=== PATIENT | female | born 1950 ===

== ENCOUNTER 2020-07-22 20:33 | Inpatient (IN) | payer OTHER, SELFPAY ==
--- NOTE | 2020-07-22 20:47 | PC.NURSE ---
Per pt's daughter Court Victor phone number [phone], pt was sent to the ED by Dr. Joaquin (radiologist) to be admitted for L5 fx. Dtr reports pt is to be admitted for procedure tomorrow.
--- NOTE | 2020-07-22 21:15 | ED.GENADULT ---
HPI - General Adult General Chief complaint: Back Pain/Injury Stated complaint: BACK PAIN Time Seen by Provider: 07/22/20 21:06 History of Present Illness HPI narrative: History of endometrial cancer. Patient has been having back pain since April. Has been having some incontinence issues since then. Also has numbness to the left leg. Patient had CT scan of the spine done yesterday. It showed a compression fracture. She was told to come into the emergency department for getting cement place tomorrow while in the hospital. no fever no chills no new weakness. No new incontinence. No coughing congestion upper respiratory symptoms. Pain is Sharp and radiates to bilateral lower extremity.. Onset (ago): month(s) Location: back Radiation: back and extremity ( Bilateral lower extremity) Related Data Allergies Allergy/AdvReac Type Severity Reaction Status Date / Time No Known Allergies Allergy Unverified 07/08/20 19:36 [No Known Allergies*] Review of Systems Review of Systems: Yes all other systems are reviewed and are negative Eyes: Eyes: Reports as per HPI ENT: Reports system reviewed and no additional complaints, except as documented Cardiovascular: Cardiovascular: Reports as per HPI and Reports no additional cardiovascular complaints Respiratory: Respiratory: Reports as per HPI and Reports no additional respiratory complaints Gastrointestinal: Gastrointestinal: Reports as per HPI and Reports no additional gastrointestinal complaints Genitourinary: Genitourinary: Reports no additional female genitourinary complaints Musculoskeletal: Musculoskeletal: Reports no additional musculoskeletal complaints Integumentary/Breasts: Skin/Breast: Reports system reviewed and no additional complaints, except as docu Neurologic: Reports system reviewed and no additional complaints, except as documented Endocrine: Endocrine: Reports no additional endocrine complaints Hematologic/Lymphatic: Hematologic/Lymphatic: Reports no additional hematologic/lymphatic complaints Allergic/Immunologic: Allergic/Immunologic: Reports no additional allergic/immunologic complaints [facility] Past Medical History Medical History Diabetes 1.5, managed as type 2 Endometrial cancer Hypothyroid Osteoporosis Social History Social History Alcohol intake: never Smoking Status: Never smoker Use of substances other than those prescribed or required for medical reasons: No Advance Directives: No Advance Directives Information Provided: No Physical Exam Vital Signs and I&O and Narrative: Vital Signs and I&O: Vital Signs Temp 98.1 F 10/01/20 21:36 Pulse 84 07/22/20 22:13 Resp 18 07/22/20 22:13 BP 156/84 H 07/22/20 22:13 Pulse Ox 96 07/22/20 22:13 Intake & Output 07/22/20 07/22/20 07/23/20 06:59 18:59 06:59 Weight 64.864 kg Body Mass Index 25.3 Const: General: cooperative Orientation/consciousness: oriented to person, oriented to place and oriented to time HENMT: Head: Yes normal to inspection Face and sinus: Yes normal facial exam Teeth and gingiva: dentition normal Throat: Yes posterior oropharynx normal Eyes: General: appearance normal, both eyes and all related structures Neck: Other: no JVD no posterior C-spine tenderness Neck: Yes normal visual inspection Chest: Chest palpation & inspection: normal inspection of the chest Resp: Effort & Inspection: normal respiratory effort Auscultation: clear to auscultation bilaterally Cardio: Jugular venous distension: no JVD Rate: regular rate Rhythm: regular rhythm GI: Inspection: Yes normal to inspection Palpation (GI): Soft to palpation, nontender, no guarding and not rigid Auscultation: normal bowel sounds : General: Yes no CVA tenderness Back/Spine/Pelvis: Other: sensation in bilateral lower extremity intact. Patient has weakness on movement of the left leg. There is diminished reflexes at patella on the left. Back: no CVA tenderness Thoracic/Lumbar Spine: thoracic and lumbar spine normal to inspection and No straight leg raise positive Skin: General skin exam: no rashes or lesions noted Neuro: General: oriented to person, oriented to place and oriented to time Extrem: General: Yes normal to inspection Psych: Appearance: grossly normal Medical Decision Making MDM Narrative Medical decision making narrative: Patient had no new bowel urinary incontinence. No focal weakness. Has compression fracture to her L4 area. Patient was told by Interventional Radiology to come in for admission pain control. Was to get kyphoplasty done tomorrow. Patient's case discussed with hospitalist service for pain control. Currently in stable condition. Awaiting admission. Patient had CT of the abdomen pelvis done yesterday. There is no evidence of abdominal aortic aneurysm. There is no abscess is no perforation. Lab Data Result diagrams: 07/22/20 21:51 07/22/20 21:51 Labs: Lab Results 07/22/20 07/22/20 07/22/20 Range/Units 21:51 21:51 21:51 WBC 4.9 (4.8-10.8) X10*3/uL RBC 3.69 L (4.20-5.50) X10*6/uL Hgb 10.3 L (12.0-16.0) g/dl Hct 31.3 L (37-47) % MCV 84.8 (80-98) fL MCH 27.9 (27.0-33.0) pg MCHC 32.9 (31.0-35.0) g/dl RDW 14.6 (11.0-16.0) % Plt Count 249 (160-400) X10*3/uL MPV 9.4 (9.4-12.3) fL Immature Gran % (Auto) 0.4 (0.0-0.4) % Neut % (Auto) 62.3 (45-73) % Lymph % (Auto) 23.5 (20-40) % [place] % (Auto) 7.7 (2-11) % Eos % (Auto) 5.3 H (0-4) % Baso % (Auto) 0.8 (0-2) % Neut # (Auto) 3.1 (2.0-8.3) X10*3/uL Lymph # (Auto) 1.2 (1.2-4.9) X10*3/uL [place] # (Auto) 0.4 (0.1-1.2) X10*3/uL Eos # (Auto) 0.3 (0.0-0.4) X10*3/uL Baso # (Auto) 0.0 (0.0-0.2) X10*3/uL Abs Immat Gran (auto) 0.02 (0.00-0.03) X10*3/uL Absolute Nucleated RBC 0.000 (0.0-0.012) X10*3/uL Nucleated RBC % (auto) 0.0 (0.0-0.2) /100WBC PT 12.7 (10.8-13.0) SEC INR 1.1 (0.9-1.1) Sodium 135 (135-145) mmol/L Potassium 4.1 (3.3-5.1) mmol/l Chloride 100 (96-108) mmol/L Carbon Dioxide 26 (22-29) mmol/L Anion Gap 13 (12-20) BUN 14 (9-16) mg/dL Creatinine 0.94 (0.5-1.4) mg/dL Estim Creat Clear Calc 52.5 Estimated GFR 59 Random Glucose 83 (60-115) mg/dL Calcium 8.8 (8.4-10.2) mg/dL Blood Type Antibody Screen 07/22/20 Range/Units 21:51 WBC (4.8-10.8) X10*3/uL RBC (4.20-5.50) X10*6/uL Hgb (12.0-16.0) g/dl Hct (37-47) % MCV (80-98) fL MCH (27.0-33.0) pg MCHC (31.0-35.0) g/dl RDW (11.0-16.0) % Plt Count (160-400) X10*3/uL MPV (9.4-12.3) fL Immature Gran % (Auto) (0.0-0.4) % Neut % (Auto) (45-73) % Lymph % (Auto) (20-40) % [place] % (Auto) (2-11) % Eos % (Auto) (0-4) % Baso % (Auto) (0-2) % Neut # (Auto) (2.0-8.3) X10*3/uL Lymph # (Auto) (1.2-4.9) X10*3/uL [place] # (Auto) (0.1-1.2) X10*3/uL Eos # (Auto) (0.0-0.4) X10*3/uL Baso # (Auto) (0.0-0.2) X10*3/uL Abs Immat Gran (auto) (0.00-0.03) X10*3/uL Absolute Nucleated RBC (0.0-0.012) X10*3/uL Nucleated RBC % (auto) (0.0-0.2) /100WBC PT (10.8-13.0) SEC INR (0.9-1.1) Sodium (135-145) mmol/L Potassium (3.3-5.1) mmol/l Chloride (96-108) mmol/L Carbon Dioxide (22-29) mmol/L Anion Gap (12-20) BUN (9-16) mg/dL Creatinine (0.5-1.4) mg/dL Estim Creat Clear Calc Estimated GFR Random Glucose (60-115) mg/dL Calcium (8.4-10.2) mg/dL Blood Type O Positive Antibody Screen NEGATIVE Discharge Plan Discharge Patient Disposition: Admitted As Inpatient
[2020-07-22 21:36] VITALS: BP 159/85; PULSE 86; RESP 16; TEMP 36.7; O2SAT 97; BMI 25.3
[2020-07-22 22:00] LABS: MANUAL DIFF FLAG NO
[2020-07-22 22:03] LABS: Basophils Percent Auto 0.8 % (0-2); Eosinophils Absolute Auto 0.3 X10*3/uL (0.0-0.4); Eosinophils Percent Auto 5.3 % (0-4); Hematocrit 31.3 % (37-47); Hemoglobin 10.3 g/dl (12.0-16.0); Imm Gran Abs Auto 0.02 X10*3/uL (0.00-0.03); Imm Gran Pct Auto 0.4 % (0.0-0.4); Lymphocytes Absolute Auto 1.2 X10*3/uL (1.2-4.9); Lymphocytes Percent Auto 23.5 % (20-40); Mean Corpuscular HGB Conc 32.9 g/dl (31.0-35.0); Mean Corpuscular Hemoglobin 27.9 pg (27.0-33.0); Mean Corpuscular Volume 84.8 fL (80-98); Mean Platelet Volume 9.4 fL (9.4-12.3); Monocytes Absolute Auto 0.4 X10*3/uL (0.1-1.2); Monocytes Percent Auto 7.7 % (2-11); Neutrophils Absolute Auto 3.1 X10*3/uL (2.0-8.3); Neutrophils Percent Auto 62.3 % (45-73); Platelet Count 249 X10*3/uL (160-400); Red Blood Count 3.69 X10*6/uL (4.20-5.50); Red Cell Distribution Width 14.6 % (11.0-16.0); White Blood Count 4.9 X10*3/uL (4.8-10.8)
[2020-07-22] MEDS: HYDROmorphone HCl 0.5 MG/0.5 ML SYRINGE IVPUSH (22:05)
[2020-07-22 22:10] LABS: INTERNATIONAL NORM RATIO 1.1 (0.9-1.1); Prothrombin Time 12.7 SEC (10.8-13.0)
[2020-07-22 22:13] VITALS: BP 156/84; PULSE 84; RESP 18; O2SAT 96
[2020-07-22 22:22] LABS: Anion Gap 13 (12-20); Blood Urea Nitrogen 14 mg/dL (9-16); Calcium 8.8 mg/dL (8.4-10.2); Carbon Dioxide 26 mmol/L (22-29); Chloride 100 mmol/L (96-108); Creatinine Clr Calc Pharmacy 52.5; Estimated Glomerular Filt Rate 59; Glucose Random 83 mg/dL (60-115); Potassium 4.1 mmol/l (3.3-5.1); Sodium 135 mmol/L (135-145)
--- NOTE | 2020-07-22 22:28 | P.HPIM_ITS ---
History of Present Illness Date of Service: 07/22/20 Chief Complaint: kyphoplasty this is a pleasant 69-year-old female with past medical history of uterine cancer status post hysterectomy and radiation therapy, diabetes, Lyme disease, who presents to the hospital after getting a call from her interventional rad iologist stating that she needs to be admitted for kyphoplasty in the morning. Patient reports that she suffers from compression fracture that occurred sometime in April but has worsened now. She underwent a CT scan of her back today and was called by her doctor shortly after an asked to come into the hospital for the procedure tomorrow. Patient has had numbness, tingling, and weakness of lower extremities bilaterally since April, she also developed urinary retention due to the complication from her fracture. She currently has no chest pain, no shortness of breath, no abdominal pain, no urinary symptoms. No lower extremity edema. On arrival to the ED hemodynamically stable with no significant abnormal vitals. Labs significant for hemoglobin of 10.3 which is lower than her hemoglobin in April of this year which was 12.1, otherwise unremarkable patient will be admitted for further management. Past medical hi\story: Diabetes, Lyme disease, endometrial cancer status post hysterectomy and radiation therapy not on chemotherapy, surgical history: hysterectomy, tonsillectomy, parathyroidectomy Family history: Diabetes social history: Comes from home, ambulates with a cane, denies tobacco alcohol or illicit drugs Review of Systems Review of Systems: Yes all other systems are reviewed and are negative Neurologic: Reports system reviewed and no additional complaints, except as documented [facility] Medical History Diabetes 1.5, managed as type 2 Endometrial cancer Hypothyroid Osteoporosis Social History Household Members: Other Household Members Other:: ex Housing: House Alcohol intake: never Smoking Status: Never smoker Use of substances other than those prescribed or required for medical reasons: No Have you been hit, kicked, punched, or otherwise hurt by someone within the past year? If so, by whom?: No Do you feel safe in your current relationship?: No Current Relationship Is there a partner from a previous relationship who is making you feel unsafe now?: No Are you made to feel afraid or neglected: No Advance Directives: No Advance Directives Information Provided: No Do you have thoughts of harming others: None Recently lost weight without trying: Yes Meds Allergies Allergy/AdvReac Type Severity Reaction Status Date / Time No Known Allergies Allergy Unverified 07/08/20 19:36 [No Known Allergies*] Home Medications Medication Instructions Recorded Confirmed Type calcium carbonate-vitamin D3 1 tab PO BID 07/23/20 07/23/20 History [Oyster [place] Calcium-Vit D3] cholecalciferol (vitamin D3) 1 cap PO DAILY 07/23/20 07/23/20 History gabapentin 1 cap PO TID 07/23/20 07/23/20 History levothyroxine 1 tab PO DAILY 07/23/20 07/23/20 History metformin 2 tab PO DAILY 07/23/20 07/23/20 History oxycodone 1 - 2 tab PO Q4H PRN 07/23/20 07/23/20 History tamsulosin 2 cap PO BEDTIME 07/23/20 07/23/20 History Physical Exam Vital Signs and Narrative: Vital Signs: Last Vital Signs Temp 98.1 F 07/22/20 21:36 Pulse 84 07/22/20 22:13 Resp 18 07/22/20 22:13 BP 156/84 H 07/22/20 22:13 Pulse Ox 96 07/22/20 22:13 Body Mass Index 25.3 Const: General: cooperative and no acute distress Orientation/consciousness: patient oriented x3 Eyes: General: appearance normal, both eyes and all related structures Pupils: Equal, round and reactive pupils present Resp: Effort & Inspection: normal respiratory effort Auscultation: clear to auscultation bilaterally Cardio: Rate: regular rate Rhythm: regular rhythm GI: Inspection: Yes normal to inspection Palpation (GI): Soft to palpation Auscultation: normal bowel sounds Skin: General skin exam: no rashes or lesions noted Neuro: General: patient oriented x3 Cranial nerves: Yes Equal, round and reactive pupils present Cognition (Neuro): normal cognition Motor exam (neuro): 5/5 motor strength present throughout Extrem: General: Yes normal to inspection and Yes no pedal edema Results Labs Labs: Laboratory Tests 07/22/20 07/22/20 07/22/20 21:51 21:51 21:51 WBC 4.9 RBC 3.69 L Hgb 10.3 L Hct 31.3 L MCV 84.8 MCH 27.9 MCHC 32.9 RDW 14.6 Plt Count 249 MPV 9.4 Immature Gran % (Auto) 0.4 Neut % (Auto) 62.3 Lymph % (Auto) 23.5 [place] % (Auto) 7.7 Eos % (Auto) 5.3 H Baso % (Auto) 0.8 Neut # (Auto) 3.1 Lymph # (Auto) 1.2 [place] # (Auto) 0.4 Eos # (Auto) 0.3 Baso # (Auto) 0.0 Abs Immat Gran (auto) 0.02 Absolute Nucleated RBC 0.000 Nucleated RBC % (auto) 0.0 PT 12.7 INR 1.1 Sodium 135 Potassium 4.1 Chloride 100 Carbon Dioxide 26 Anion Gap 13 BUN 14 Creatinine 0.94 Estim Creat Clear Calc 52.5 Estimated GFR 59 Random Glucose [address] scan - abdomen: Radiologist's impression: CT of the abdomen and pelvis done on 07/21/2022 any shows multiple nodules in the lungs, abnormal soft tissue in the retroperitoneum of the lower abdomen suggestive of lymphadenopathy metastatic disease. Marked bladder wall thickening and wall thickening of the sigmoid colon and rectum questionable for post radiation change. Severe L4 vertebral body compression fracture that appears to have increased from MRI in May 2020. With retropulsion of bone into the spinal canal. Assessment and Plan (1) Compression fracture: Status: Acute - unclear why patient had compression fracture she does have history of osteoporosis as well as endometrial cancer but reports no bone metastasis as of right now. Underwent CT scan on outpatient basis on the of this month which showed worsening of her compression fracture at the L4 level and therefore was called by her specialist to come into the hospital for cement infusion in a.m. (2) Endometrial cancer: Status: Acute status pot hysterectomy appears to have metastasis this is at this point per CT done on 07/21 will need follow-up with her medical claims representative oncologist as outpatient (3) Osteoporosis: Status: Acute continue calcium/vitamin-D, continue cholecalciferol (4) Hypothyroid: Status: Acute continue levothyroxine (5) Diabetes 1.5, managed as type 2: Status: Acute stop metformin start low-dose sliding scale insulin diabetic diet
--- NOTE | 2020-07-22 22:32 | PC.NURSE ---
PT SENT HERE BY MD CASTELLANO AFTER MRI REVEALED WORSENED L5 COMPRESSION FX. FX WORSENED FROM RADIATION TX FOR ENDOMETRIAL CA, FX OCCURRED IN APRIL. 01/29 LOWER BACK PAIN. PT EXPERIENCES OCCASIONAL URINE/STOOL INCONTINENCE. C/O NUMBNESS DOWN BILAT LE'S, USES WALKER TO AMBULATE. VS WNL. 20G PLACED IN R LOWER ARM, MEDICATED PER EMR. PT IS A&OX3, SPEAKING IN CLEAR FULL SENTENCES. RESP EVEN AND NONLABOURED. PT CALM AND COOPERATIVE.
[2020-07-23] VITALS (9 sets, daily range): BP systolic 135–198; BP diastolic 86–99; PULSE 79–106; RESP 16–19; TEMP 36.2–36.9; O2SAT 90–99
--- NOTE | 2020-07-23 | IR_ITS ---
EXAMINATION: IR LUMBAR VERTEBROPLASTY AND BONE MARROW BIOPSY CLINICAL INFORMATION: Acute L5 compression fracture with significant pain on ambulation. Likely pathological fracture. Patient was on steroids and also has para-aortic lymphadenopathy. COMPARISON: CT abdomen and pelvis 07/21/2020. TECHNIQUE: Following explaining fluoroscopy-guided bipedicular approach L5 kyphoplasty procedure, benefits and risks, a written consent was obtained. Patient was placed prone on fluoroscopy table and low back area was cleaned and draped in usual sterile manner. 1% lidocaine was injected at the skin following localization of right pedicle. A 22-gauge spinal needle was then advanced from the skin to the level of pedicle and 0.25% Marcaine was injected. Through a small skin incision a 10-gauge Kyphon needle was inserted from the skin to the level of pedicle and through the pedicle into the posterior one-third of L5 vertebra. A second needle was inserted in a similar fashion through a small skin incision into the left posterior one-third of L5 vertebra. A drill was inserted through the right and left pedicle and a tract created. Subsequently 10-gauge biopsy needle was inserted through the right and left pedicle and a bone marrow aspiration performed and sent in alcohol solution. High-tensile balloons were inserted and inflated to 160-180 psi for 5 minutes. The balloons were deflated and removed. Fresh prepared polymethylmethacrylate was injected through the right needle followed by left needle under continuous AP, oblique and lateral fluoroscopy. After achieving adequate amount of cement and observing no cement leak both needles were withdrawn approximately 8 minutes postinjection. Complete hemostasis achieved at puncture site. Patient tolerated procedure very well. Conscious sedation was performed for 45 minutes with Versed and fentanyl. FINDINGS: On preliminary imaging there is acute L5 compression fracture with approximately 50% loss of height. A bone marrow aspiration biopsy was performed through both needles. There is adequate amount of cement occupying the L5 vertebra with no extravasation seen. FLUOROSCOPY TIME: 10.4 minutes DOSE AREA PRODUCT: 7785 uGy-m2 (microgray-meter squared) IMPRESSION: Successful fluoroscopy-guided bipedicular approach L5 bone marrow biopsy followed by kyphoplasty performed.
--- NOTE | 2020-07-23 | CT_ITS ---
EXAMINATION: CT LUMBAR SPINE CLINICAL INFORMATION: Post kyphoplasty CT evaluation. COMPARISON: CT abdomen exam 07/21/2020. TECHNIQUE: 2 mm thin axial and reformatted 2 mm thin sagittal and coronal images of lumbar spine with attention to L5 vertebra was obtained from L4 through S1 vertebra This CT examination was performed using dose optimization techniques as appropriate, variously including the following: *Automated exposure control *Adjustment of mA and/or kV according to patient size (this includes techniques or standardized protocols for targeted exams where dose is matched to indication/reason for exam; i.e. extremities or head) *Use of iterative reconstruction technique DLP: 242 mGy-cm FINDINGS: There is adequate amount of cement occupying the L5 vertebra with no extravasation seen. Approximately 50% loss of vertebral height is seen centrally. Mild posterior bony component is unchanged to the pre kyphoplasty findings from CT abdomen 07/21/2020. There is mild diffuse bulge at the L4-L5 disc level with mild concentric canal stenosis. There is underlying L4-L5 facet joint hypertrophy. At L5-S1 disc level. Thecal sac is capacious. The neural foramina is patent. There is no spinal canal stenosis. IMPRESSION: Adequate amount of cement occupying L5 vertebra with no extravasation seen.
[2020-07-23] MEDS: 0.9 % Sodium Chloride Flush 3 ML SYRINGE 2 ML IVFLUSH ×3 (02:26→17:32)
--- NOTE | 2020-07-23 02:47 | MHC.PIE ---
P; PT ARRIVED FROM ED C/O PAIN 04/30 TO BACK AND HIP. NOTE; PT GIVEN DILAUDID 0.5 MG IV WITH LITTLE TO NO RESULT I; DR TELLEZ NOTIFIED E; WILL CONT TO MONITOR
[2020-07-23] MEDS: oxyCODONE HCl Immed Release 5 MG TABLET PO ×2 (03:25→08:41)
[2020-07-23] MEDS: Acetaminophen 325 MG TABLET 650 MG PO (03:33)
[2020-07-23 05:27] LABS: MANUAL DIFF FLAG NO
[2020-07-23 05:33] LABS: Basophils Percent Auto 0.9 % (0-2); Eosinophils Absolute Auto 0.2 X10*3/uL (0.0-0.4); Eosinophils Percent Auto 5.5 % (0-4); Hematocrit 32.7 % (37-47); Hemoglobin 10.6 g/dl (12.0-16.0); Imm Gran Abs Auto 0.02 X10*3/uL (0.00-0.03); Imm Gran Pct Auto 0.5 % (0.0-0.4); Lymphocytes Absolute Auto 0.8 X10*3/uL (1.2-4.9); Lymphocytes Percent Auto 18.9 % (20-40); Mean Corpuscular HGB Conc 32.4 g/dl (31.0-35.0); Mean Corpuscular Hemoglobin 27.7 pg (27.0-33.0); Mean Corpuscular Volume 85.4 fL (80-98); Mean Platelet Volume 9.7 fL (9.4-12.3); Monocytes Absolute Auto 0.3 X10*3/uL (0.1-1.2); Monocytes Percent Auto 7.8 % (2-11); Neutrophils Absolute Auto 2.9 X10*3/uL (2.0-8.3); Neutrophils Percent Auto 66.4 % (45-73); Platelet Count 270 X10*3/uL (160-400); Red Blood Count 3.83 X10*6/uL (4.20-5.50); Red Cell Distribution Width 14.9 % (11.0-16.0); White Blood Count 4.3 X10*3/uL (4.8-10.8)
[2020-07-23 06:09] LABS: Anion Gap 12 (12-20); Blood Urea Nitrogen 12 mg/dL (9-16); Carbon Dioxide 27 mmol/L (22-29); Chloride 102 mmol/L (96-108); Creatinine Clr Calc Pharmacy 63.3; Estimated Glomerular Filt Rate > 60; Glucose Random 83 mg/dL (60-115); Potassium 4.3 mmol/l (3.3-5.1); Sodium 137 mmol/L (135-145)
[2020-07-23 08:20] LABS: Glucose, Whole Blood 77 mg/dL (60-115)
[2020-07-23] MEDS: Cholecalciferol (Vitamin D3) 25 MCG TABLET PO (08:42)
[2020-07-23] MEDS: Gabapentin 300 MG CAPSULE PO ×3 (08:42→22:27)
[2020-07-23] MEDS: Levothyroxine Sodium 100 MCG TABLET PO (08:42)
--- NOTE | 2020-07-23 10:14 | MHC.CM.PN ---
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 FOR HERSELF SHE IS INDEPENDENT WITH ADLS AT HER OWN P[facility] and now [facility] , since back pain has become persistent, [facility] and occupational thearpy patient confimred that she did a molst yesterday educated also about the importance of having a health care proxy , she reported to me her next of kin to contact his \Darlin Bourne [phone] (she also would be the one to call for transportation at discharge, her pcp is dr angie echeverria [facility] in [place] she folows her diabetes she checks her sugars), she denies any financial difficulties in obtaining her medications) She is interested in having [facility] physical and occupational thearpy discharge plan for intervential radilogy procedure today retrun home with resumtpion of her [facility] for longterm physical and coccupational theapry pcp patient to call for appointment to be seen post hospitla discharge transportation patient to self arrange
[2020-07-23 11:27] LABS: Glucose, Whole Blood 84 mg/dL (60-115)
--- NOTE | 2020-07-23 16:35 | HO.PM.IMPN ---
Subjective Subjective Date of Service: 07/23/20 Interval History: Patient admitted for back pain and diagnosed recent diagnosis of L4 compression fracture patient was called by Dr. cormier from interventional radiology to undergo kyphoplasty due to worsening of compression fracture compared to recent back imaging study. At present patient complaining of persistent lower back pain she also have chronic bilateral lower extremity weakness and discomfort she is being followed closely by her primary care physician and is scheduled to be seen by OBGYN oncologist at [facility] due to history of prior uterine cancer status post radiation treatment and hysterectomy. 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 no chest pain no palpitation Gastrointestinal complaining of nausea, no vomiting, no abdominal pain musculoskeletal complaining of lower back pain Physical Exam Vital Signs and I&O and Narrative: Vital Signs and I&O: Vital Signs Temp 97.6 F 07/23/20 16:15 Pulse 101 H 07/23/20 16:15 Resp 18 07/23/20 16:15 BP 198/99 H 07/23/20 16:15 Pulse Ox 98 07/23/20 16:15 Intake & Output 07/22/20 07/23/20 07/23/20 18:59 06:59 18:59 Intake Total 0 / 0 Output Total 500 / 500 Balance 0 / 0 -500 / -500 Urine Output (Aver age ml/kg/hr) 0.64 Weight 64.864 kg Intake: Intake, Oral Adán unt 0 / 0 Output: Output, Urine Am ount 500 / 500 Other: Urine Bedside Commode Urine Color Cloudy Body Mass Index 25.3 General appears to be in distress due to pain and nausea Neck is supple no JVD Lungs clear to auscultation bilateral, no respiratory distress no use of accessory muscles Heart regular rate rhythm Abdomen soft nontender bowel sounds are audible Extremities no edema Skin no rash. Neuro patient awake alert x3 moving all 4 extremities complete neuro exam not done due to back pain Objective Data Current Medications Generic Name Dose Route Start Last Admin Trade Name Freq PRN Reason Stop Dose Admin Acetaminophen 650 mg 07/23/20 03:25 07/23/20 03:33 Acetaminophen 325 Mg Tablet PO 650 mg Q6H PRN Administration Pain, Mild (Pain Scale 1-3) Gabapentin 300 mg 07/23/20 09:00 07/23/20 08:42 Gabapentin 300 Mg Capsule PO 300 mg TID SRIKANTH Administration Dextrose/Sodium Chloride 1,000 mls @ 100 mls/hr 07/23/20 16:30 D5ns IVCONT .Q10H [facility] Insulin Human Lispro 0 unit 07/23/20 07:30 07/23/20 11:35 Insulin Lispro 100 Unit/Ml 3 Ml Vial SUBCUT Not Given QIDACHS [facility] Protocol Levothyroxine Sodium 100 mcg 07/23/20 06:45 07/23/20 08:42 Levothyroxine Sodium 100 Mcg Tablet PO 100 mcg DAILY@0630 [facility] Administration Morphine Sulfate 2 mg 07/23/20 16:26 Morphine Sulfate 2 Mg/Ml Cartridge IVPUSH Q4H PRN severe pain Ondansetron HCl 4 mg 07/23/20 02:00 Ondansetron Hcl 4 Mg/2 Ml Vial IVPUSH Q8H PRN Nausea and Vomiting Oxycodone HCl 5 mg 07/23/20 03:12 07/23/20 08:41 Oxycodone Hcl Immed Release 5 Mg Tablet PO 5 mg Q4H PRN Administration Pain, Severe (Pain Scale 7-10) Oxycodone HCl 5 mg 07/23/20 06:07 Oxycodone Hcl Immed Release 5 Mg Tablet PO Q4H PRN pain Sodium Chloride 2 ml 07/23/20 02:00 07/23/20 08:43 0.9 % Sodium Chloride Flush 3 Ml Syringe IVFLUSH 2 ml QSHIFT [facility] Administration Tamsulosin HCl 0.8 mg 07/23/20 21:00 Tamsulosin Hcl 0.4 Mg Capsule PO BEDTIME [facility] Vitamin D 25 mcg 07/23/20 09:00 07/23/20 08:42 Cholecalciferol (Vitamin D3) 25 Mcg Tablet PO 25 mcg DAILY [facility] Administration Labs CBC & Chem 7: 07/23/20 04:45 07/23/20 04:45 Labs: Laboratory Results - last 24 hr 07/22/20 07/22/20 07/22/20 21:51 21:51 21:51 MCV 84.8 MCH 27.9 MCHC 32.9 RDW 14.6 Plt Count 249 MPV 9.4 Immature Gran % (Auto) 0.4 Neut % (Auto) 62.3 Lymph % (Auto) 23.5 [place] % (Auto) 7.7 Eos % (Auto) 5.3 H Baso % (Auto) 0.8 Neut # (Auto) 3.1 Lymph # (Auto) 1.2 [place] # (Auto) 0.4 Eos # (Auto) 0.3 Baso # (Auto) 0.0 Abs Immat Gran (auto) 0.02 Absolute Nucleated RBC 0.000 Nucleated RBC % (auto) 0.0 PT 12.7 INR 1.1 Anion Gap 13 Estim Creat Clear Calc 52.5 Estimated GFR 59 POC Glucose Random Glucose 83 Calcium 8.8 Blood Type Antibody Screen 07/22/20 07/23/20 07/23/20 21:51 04:45 04:45 MCV 85.4 MCH 27.7 MCHC 32.4 RDW 14.9 Plt Count 270 MPV 9.7 Immature Gran % (Auto) 0.5 H Neut % (Auto) 66.4 Lymph % (Auto) 18.9 L [place] % (Auto) 7.8 Eos % (Auto) 5.5 H Baso % (Auto) 0.9 Neut # (Auto) 2.9 Lymph # (Auto) 0.8 L [place] # (Auto) 0.3 Eos # (Auto) 0.2 Baso # (Auto) 0.0 Abs Immat Gran (auto) 0.02 Absolute Nucleated RBC 0.000 Nucleated RBC % (auto) 0.0 PT INR Anion Gap 12 Estim Creat Clear Calc 63.3 Estimated GFR > 60 POC Glucose Random Glucose 83 Calcium 9.0 Blood Type O Positive Antibody Screen NEGATIVE 07/23/20 07/23/20 08:16 11:19 MCV MCH MCHC RDW Plt Count MPV Immature Gran % (Auto) Neut % (Auto) Lymph % (Auto) [place] % (Auto) Eos % (Auto) Baso % (Auto) Neut # (Auto) Lymph # (Auto) [place] # (Auto) Eos # (Auto) Baso # (Auto) Abs Immat Gran (auto) Absolute Nucleated RBC Nucleated RBC % (auto) PT INR Anion Gap Estim Creat Clear Calc Estimated GFR POC Glucose 77 84 Random Glucose Calcium Blood Type Antibody Screen Assessment and Plan (1) Compression fracture: Problem details: patient with history of L4 compression fracture noted to got worsened on imaging study done on July [address] Joaquin to undergo kyphoplasty case discussed with Dr. Joaquin patient underwent procedure, now complaining of lower back discomfort therefore will place patient on IV morphine IV fluids and use anti emetics due to nausea. Will obtain PT evaluation prior to discharge. Status: Acute (2) Hypothyroid: Problem details: continue Synthroid Status: Acute (3) Endometrial cancer: Problem details: patient noted to have lower abdominal mass therefore need to have outpatient Oncology follow-up, patient's PCP is referring her to [facility] OBGYN oncologist. Status: Acute (4) Diabetes 1.5, managed as type 2: Problem details: Will hold Glucophage continue insulin sliding scale and diabetic Status: Acute (5) Back pain: Problem details: likely due to L4 compression fracture is status post kyphoplasty will continue oxycodone and add IV morphine for pain control question patient has pathological fracture due to lower abdominal mass with history of uterine cancer versus osteoporosis. continue gabapentin Status: Acute
[2020-07-23 16:48] LABS: Glucose, Whole Blood 89 mg/dL (60-115)
[2020-07-23] MEDS: Dextrose 5 % and 0.9 % NaCl 1,000 ML 100 ML IVCONT (17:32)
[2020-07-23] MEDS: ondansetron HCL 4 MG/2 ML VIAL IVPUSH (17:33)
[2020-07-23] MEDS: Morphine Sulfate 2 MG/ML CARTRIDGE IVPUSH ×2 (17:56→22:33)
[2020-07-23 21:39] LABS: Glucose, Whole Blood 159 mg/dL (60-115)
[2020-07-23] MEDS: Tamsulosin HCL 0.4 MG CAPSULE 0.8 MG PO (22:27)
[2020-07-24] VITALS: BP 161/92; PULSE 103; RESP 16; TEMP 36.8; O2SAT 96
[2020-07-24] MEDS: 0.9 % Sodium Chloride Flush 3 ML SYRINGE 2 ML IVFLUSH
[2020-07-24] MEDS: Dextrose 5 % and 0.9 % NaCl 1,000 ML 100 ML IVCONT ×3 (03:40→22:00)
[2020-07-24] MEDS: Levothyroxine Sodium 100 MCG TABLET PO (06:26)
[2020-07-24] MEDS: oxyCODONE HCl Immed Release 5 MG TABLET PO (06:26)
[2020-07-24 06:53] VITALS: BP 150/91; PULSE 109; RESP 19; TEMP 36.7; O2SAT 97
[2020-07-24 08:00] VITALS: BP 150/91; PULSE 102; RESP 19; TEMP 36.7; O2SAT 97
[2020-07-24 08:11] LABS: Glucose, Whole Blood 138 mg/dL (60-115)
[2020-07-24] MEDS: Gabapentin 300 MG CAPSULE PO ×3 (08:39→21:45)
[2020-07-24] MEDS: Cholecalciferol (Vitamin D3) 25 MCG TABLET PO (08:39)
[2020-07-24] MEDS: Lactulose 20 GM/30 ML SOLUTION 15 GM PO (12:14)
[2020-07-24 12:28] LABS: Glucose, Whole Blood 137 mg/dL (60-115)
[2020-07-24 16:00] VITALS: BP 160/86; PULSE 95; RESP 18; TEMP 36.7; O2SAT 100
--- NOTE | 2020-07-24 17:07 | P.PNIM_ITS ---
Subjective Subjective Interval History: Patient admitted for back pain and diagnosed recent diagnosis of L5 compression fracture patient was called by Dr. Joaquin from interventional radiology to undergo kyphoplasty due to worsening of compression fracture compared to recent back imaging study. Patient complaining of lower back pain and weakness back pain is better since yesterday, no acute issues overnight no fever chills no nausea vomiting, patient tolerating diet Physical Exam Vital Signs and I&O and Narrative: Vital Signs and I&O: Vital Signs Temp 98.0 F 07/24/20 08:00 Pulse 102 H 07/24/20 08:00 Resp 19 07/24/20 08:00 BP 150/91 H 07/24/20 08:00 Pulse Ox 97 07/24/20 08:00 Intake & Output 07/23/20 07/24/20 07/24/20 18:59 06:59 18:59 Intake Total 1600 / 1600 935 / 935 Output Total 500 / 500 300 / 300 Balance -500 / 1100 1600 / 1100 635 / 635 Urine Output (Aver age ml/kg/hr) 0.64 0.64 0.39 Intake: Intake, Oral [place] unt 600 / 600 Intake, IV Amoun t 1000 / 1000 935 / 935 Dextrose 5 % a nd 0.9 % NaCl 1, 1000 / 1000 935 / 935 000 ml @ 100 m ls/hr IVCONT . Q10H [facility] Rx#:[id number] Output: Output, Urine Am ount 500 / 500 300 / 300 Other: Dinner % Eaten 100% Diabetic Snack % Eaten 50 Number of Incont inent Voids 400 Number of Bowel Movements 1 Urine Bedside Commode Bedside Commode Urine Color Cloudy Tea Last Bowel Movem ent 07/24/20 Stool Bedside Commode Stool Color Brown Stool Consistenc y Loose Body Mass Index 25.3 General appears to be in distress due to pain and nausea Neck is supple no JVD Lungs clear to auscultation bilateral, no respiratory distress no use of accessory muscles Heart regular rate rhythm Abdomen soft nontender bowel sounds are audible Extremities no edema Skin no rash. Neuro patient awake alert x3 moving all 4 extremities complete neuro exam not done due to back pain Objective Data Current Medications Generic Name Dose Route Start Last Admin Trade Name Freq PRN Reason Stop Dose Admin Acetaminophen 650 mg 07/23/20 03:25 07/23/20 03:33 Acetaminophen 325 Mg Tablet PO 650 mg Q6H PRN Administration Pain, Mild (Pain Scale 1-3) Docusate Sodium 100 mg 07/24/20 21:00 Docusate Sodium 100 Mg Capsule PO BID [facility] Gabapentin 300 mg 07/23/20 09:00 07/24/20 14:52 Gabapentin 300 Mg Capsule PO 300 mg TID [facility] Administration Dextrose/Sodium Chloride 1,000 mls @ 100 mls/hr 07/23/20 16:30 07/24/20 13:01 D5ns IVCONT 100 mls/hr .Q10H SRIKANTH Administration Insulin Human Lispro 0 unit 07/23/20 07:30 07/24/20 12:32 Insulin Lispro 100 Unit/Ml 3 Ml Vial SUBCUT Not Given QIDACHS [facility] Protocol Levothyroxine Sodium 100 mcg 07/23/20 06:45 07/24/20 06:26 Levothyroxine Sodium 100 Mcg Tablet PO 100 mcg DAILY@0630 [facility] Administration Morphine Sulfate 2 mg 07/23/20 16:26 07/23/20 22:33 Morphine Sulfate 2 Mg/Ml Cartridge IVPUSH 2 mg Q4H PRN Administration severe pain Ondansetron HCl 4 mg 07/23/20 02:00 07/23/20 17:33 Ondansetron Hcl 4 Mg/2 Ml Vial IVPUSH 4 mg Q8H PRN Administration Nausea and Vomiting Oxycodone HCl 5 mg 07/23/20 06:07 Oxycodone Hcl Immed Release 5 Mg Tablet PO Q4H PRN pain Sodium Chloride 2 ml 07/23/20 02:00 07/24/20 16:30 0.9 % Sodium Chloride Flush 3 Ml Syringe IVFLUSH Not Given QSHIFT [facility] Tamsulosin HCl 0.8 mg 07/23/20 21:00 07/23/20 22:27 Tamsulosin Hcl 0.4 Mg Capsule PO 0.8 mg BEDTIME [facility] Administration Vitamin D 25 mcg 07/23/20 09:00 07/24/20 08:39 Cholecalciferol (Vitamin D3) 25 Mcg Tablet PO 25 mcg DAILY [facility] Administration Labs CBC & Chem 7: 07/23/20 04:45 07/23/20 04:45 Labs: Laboratory Results - last 24 hr 07/23/20 07/24/20 07/24/20 21:34 06:58 12:06 POC Glucose 159 H 138 H 137 H Assessment and Plan (1) Compression fracture: Problem details: Status: Acute (2) Hypothyroid: Status: Acute (3) Endometrial cancer: Status: Acute (4) Diabetes 1.5, managed as type 2: Status: Acute (5) Back pain: Status: Acute Assessment and Plan: L5 compression fracture patient with history of L5 compression fracture noted to got worsened on imaging study done on July 21 therefore underwent kyphoplasty by Dr. Joaquin patient tolerated procedure well, currently having lower back discomfort and weakness therefore will obtain a PT evaluation prior to discharge will discontinue IV fluid continue oxycodone for pain control. due to lower abdominal mass with history of uterine cancer versus osteoporosis. patient need to follow-up with OBGYN oncologist, PCP to provide referral.. continue gabapentin Hypothyroidism continue Synthroid Diabetes mellitus Will hold Glucophage in house continue insulin sliding scale and diabetic, resume Glucophage upon discharge l
[2020-07-24 17:33] LABS: Glucose, Whole Blood 107 mg/dL (60-115)
[2020-07-24 19:06] VITALS: BP 143/80; PULSE 96; RESP 19; TEMP 37.1; O2SAT 98
[2020-07-24 20:54] LABS: Glucose, Whole Blood 132 mg/dL (60-115)
[2020-07-24] MEDS: Tamsulosin HCL 0.4 MG CAPSULE 0.8 MG PO (21:45)
[2020-07-24] MEDS: Docusate Sodium 100 MG CAPSULE PO (21:47)
[2020-07-24] MEDS: Acetaminophen 325 MG TABLET 650 MG PO (21:57)
[2020-07-25] VITALS: BP 143/79; PULSE 96; RESP 16; TEMP 37.2; O2SAT 97
[2020-07-25] MEDS: oxyCODONE HCl Immed Release 5 MG TABLET PO ×2 (04:00→07:51)
[2020-07-25] MEDS: Levothyroxine Sodium 100 MCG TABLET PO (05:36)
[2020-07-25] MEDS: Docusate Sodium 100 MG CAPSULE PO (07:51)
[2020-07-25] MEDS: Cholecalciferol (Vitamin D3) 25 MCG TABLET PO (07:51)
[2020-07-25] MEDS: Gabapentin 300 MG CAPSULE PO ×2 (07:51→14:16)
[2020-07-25 08:00] VITALS: BP 152/77; PULSE 93; RESP 18; TEMP 36.7; O2SAT 93
[2020-07-25 08:15] LABS: Glucose, Whole Blood 99 mg/dL (60-115)
--- NOTE | 2020-07-25 11:35 | MHC.CM.PN ---
DP Note Pt will DC home today with resumption of [facility] for PT/OT.
[2020-07-25 12:28] LABS: Glucose, Whole Blood 122 mg/dL (60-115)
--- NOTE | 2020-07-25 13:20 | P.DS_ITS ---
DS: Providers Provider Date of admission: 07/22/20 22:19 Primary care physician: Unknown Physician DS: Diagnosis Discharge Diagnosis (1) Compression fracture: Status: Acute Problem details: (2) Hypothyroid: Status: Acute (3) Endometrial cancer: Status: Acute (4) Diabetes 1.5, managed as type 2: Status: Acute (5) Back pain: Status: Acute DS: Summary Hospital Course Hospital Course: 69-year-old female patient with past medical history of uterine cancer status post hysterectomy and radiation therapy, history of diabetes presented to [facility] after receiving a phone call from Interventional Radiology stating she needs to be admitted for kyphoplasty since the recent CT abdomen and pelvis showed an L5 compression for chill worsening from recent imaging study although the CT abdomen read L4 compression fracture later it was amended by Dr. Joaquin to be L5 compression fracture. patient underwent kyphoplasty she tolerated procedure fairly well postprocedure patient felt lower back pain treated with oxycodone and was evaluated by physical therapy they recommend home therapy since patient is ambulating with good pain control she is being discharged home patient also had L5 bone marrow biopsy done the report is pending patient has been instructed to follow-up with PCP to obtain result of bone marrow biopsy patient is also noted to have abnormal soft tissue growth in the retro peritoneum that he needs to be addressed by OBGYN oncologist at [facility]. patient will be continued on all of her baseline medications. Time Spent with Patient Time attestation: Total time spent providing and/or coordinating discharge services: Physical Exam Vital Signs and I&O and Narrative: Vital Signs and I&O: Vital Signs Temp 98.1 F 07/25/20 08:00 Pulse 93 07/25/20 08:00 Resp 18 07/25/20 08:00 BP 152/77 H 07/25/20 08:00 Pulse Ox 93 07/25/20 08:00 Intake & Output 07/24/20 07/25/20 07/25/20 18:59 06:59 18:59 Intake Total 935 / 1833.333 898.333 / 4438.076 4334 / 1000 Output Total 300 / 1103 803 / 1103 Balance 635 / 730.333 95.333 / 491.166 1984 / 1000 Urine Output (Aver age ml/kg/hr) 0.39 1.03 1.03 Intake: Intake, IV Amoun t 935 / 1833.333 898.333 / 2710.006 2714 / 1000 Dextrose 5 % a nd 0.9 % NaCl 1, 935 / 1833.333 898.333 / 6703.987 2372 / 1000 000 ml @ 100 m ls/hr IVCONT . Q10H [facility] Rx#:H [id number] Output: Output, Urine Am ount 300 / 1103 803 / 1103 Other: Number of Bowel Movements 1 Last Bowel Movem ent 07/24/20 Stool Bedside Commode Stool Color Brown Stool Consistenc y Loose Body Mass Index 25.3 General appears to be in distress due to pain and nausea Neck is supple no JVD Lungs clear to auscultation bilateral, no respiratory distress no use of accessory muscles Heart regular rate rhythm Abdomen soft nontender bowel sounds are audible Back pain mild tenderness at L5 Extremities no edema Skin no rash. Neuro patient awake alert x3 moving all 4 extremities DS: Data Data Completed and Pending Pending studies at discharge: Pending at discharge 07/23/20 15:45 Surgical [PTH] Routine Labs on day of discharge: Labs from last 24 hours 07/25/20 07/25/20 07/24/20 11:46 08:12 20:42 POC Glucose 122 H 99 132 H 07/24/20 17:26 POC Glucose 107 Discharge Plan Discharge Patient Disposition: Home Health Service Referrals: [facility] [Outside] Physician,Unknown [Primary Care Provider] - Discharge Medications: New acetaminophen 325 mg Tablet 650 mg PO Q6H PRN (Reason: Pain, Mild (Pain Scale 1-3)) Qty: 7 RF: 0 Continued levothyroxine 100 mcg tablet 100 mcg PO DAILY RF: 0 tamsulosin 0.4 mg capsule 0.8 mg PO BEDTIME RF: 0 gabapentin 300 mg capsule 300 mg PO TID RF: 0 oxycodone 5 mg tablet 1 - 2 tab PO Q4H PRN (Reason: pain) RF: 0 calcium carbonate-vitamin D3 [Oyster Shell Calcium-Vit D3] 500 mg(1,250mg) - 200 unit tablet 1 tab PO BID RF: 0 cholecalciferol (vitamin D3) 25 mcg (1,000 unit) tablet 25 mcg PO DAILY RF: 0 metformin 500 mg Tablet,Er Deo.Retention 24 Hr 1,500 mg PO QPM RF: 0 Discharge Orders: Discharge Order (Routine); Ordered 07/25/20 Ordered By: Basilio Sparrow Diet: diabetic diet Activity on Discharge: As tolerated Visit Report Forms: Patient Portal Discharge page Care Plan Goals: PER DISCHARGE PLAN Health Concerns: PER DISCHARGE PLAN Plan of Treatment: close outpatient follow-up with PCP to obtain report of bone marrow biopsy.
== END 2020-07-25 15:02 | disposition home health service (06) | DRG 321 ==
LOC: HO.ED 21:56 → HO.S3 22:22
PROVIDERS: Admitting Provider Internal Medicine; Emergency Provider Emergency Medicine Emergency Medical Services; Visit Provider Hospitalist
DX: M80.08XA Age-related osteoporosis with current pathological fracture, vertebra(e), initial encounter for fracture (principal); E03.9 Hypothyroidism, unspecified; E11.9 Type 2 diabetes mellitus without complications; R19.09 Other intra-abdominal and pelvic swelling, mass and lump; Z79.84 Long term (current) use of oral hypoglycemic drugs; Z85.42 Personal history of malignant neoplasm of other parts of uterus; Z79.890 Hormone replacement therapy; Z79.891 Long term (current) use of opiate analgesic; Z79.899 Other long term (current) drug therapy
CPT/HCPCS: 22514; 36415; 72131; 80048; 82947; 85025; 85610; 86850; 86900; 86901; 88307; 88311; 96374; 97162; 99284; 99285; J1170; J2270; J2405

== ENCOUNTER 2020-08-11 13:45 | Outpatient (REF) | payer OTHER, SELFPAY ==
--- NOTE | 2020-08-11 13:52 | MM_ITS ---
EXAMINATION: BONE DENSITOMETRY CLINICAL INDICATION: Recent L5 compression fracture and persistent severe low back pain. COMPARISON: None (current study represents initial baseline exam). TECHNIQUE: Using a [employer] DXA System (software version: 13.1) manufactured by [employer], dual-energy x-ray absorptiometry was performed of the lumbar spine, left hip, and left forearm radius 33%. The images are of good technical quality. Summary results are attached. FINDINGS: AP SPINE L1-L3 (excluding L4): The data of L1-L4 has been changed to exclude the L4 vertebral body, because degenerative changes at this level may cause overestimation of lumbar spine density. BMD 0.745 g/cm2, Z-score -2.0, T-score -3.5, osteoporosis. LEFT FEMUR, NECK: BMD 0.728 g/cm2, Z-score -0.7, T-score -2.2, osteopenia. LEFT FEMUR, TOTAL: BMD 0.843 g/cm2, Z-score 0.0, T-score -1.3, osteopenia. LEFT FOREARM RADIUS 33%: BMD 0.777 g/cm2, Z-score 0.5, T-score -1.1, osteopenia. IDENTIFIED RISK FACTORS: Osteoporosis, history of fracture (adult), hyperparathyroidism, height loss, low calcium intake, anticonvulsants, menopause, hysterectomy, bilateral oophorectomy. HISTORY OF FRACTURE: Reason L5 compression. Status post vertebral augmentation 07/23/2020. MEDICATIONS: Multivitamin, Vitamin D, calcitonin, bisphosphonate. IMPRESSION: 1. DIAGNOSIS: Severe osteoporosis based on the lowest T-score value of -3.5 in the lumbar spine and lumbar vertebral fracture history applying World Health Organization criteria. 2. 10-YEAR FRACTURE RISK PREDICTION, FRAX: Major osteoporotic fracture (clinical spine, forearm, hip or shoulder) 20.1%. Hip fracture 4.0%. 3. Treatment Recommendations: NOF guidelines recommend consideration for treatment in postmenopausal women and men age 50 and older presenting with the following: -A hip or vertebral (clinical or morphometric) fracture. -T-score less than or equal to -2.5 at the femoral neck or spine after appropriate evaluation to exclude secondary causes. -Low bone mass at the hip or spine and a 10-year fracture probability by FRAX of greater than or equal to 3% for hip fracture or greater than or equal to 20% for major osteoporotic fracture based on the [place] adapted WHO algorithm. 4. Other Recommendations: All treatment decisions require clinical judgment and consideration of individual patient factors, including patient preferences, comorbidities, previous drug use, risk factors not captured in the FRAX model (e.g. frailty, falls, vitamin D deficiency, increased bone turnover, interval significant decline in bone density) and possible under or overestimation of fracture risk by FRAX. Additional medical evaluation for secondary cause of low bone mineral density may be appropriate. FUTURE SCAN RECOMMENDATION: People with diagnosed cases of osteoporosis or at high risk for fracture should have regular bone mineral density tests. For patients eligible for Medicare, routine testing is allowed once every 2 years. The testing frequency can be increased to one year for patients who have rapidly progressing disease, those who are receiving or discontinuing medical therapy to restore bone mass, or have additional risk factors.
== END 2020-08-11 13:46 | disposition home or self-care (01) ==
LOC: HO.MAMMO 13:45
PROVIDERS: PCP Physician Assistant; Visit Provider Physician Assistant
DX: M81.0 Age-related osteoporosis without current pathological fracture (principal); S32.050A Wedge compression fracture of fifth lumbar vertebra, initial encounter for closed fracture; X58.XXXA Exposure to other specified factors, initial encounter; Y93.9 Activity, unspecified; Y92.9 Unspecified place or not applicable; Y99.8 Other external cause status; M54.5 Low back pain; E83.51 Hypocalcemia; Z78.0 Asymptomatic menopausal state; Z90.710 Acquired absence of both cervix and uterus; Z90.722 Acquired absence of ovaries, bilateral
CPT/HCPCS: 77080

== ENCOUNTER 2020-08-13 15:16 | Outpatient (REF) | payer OTHER, SELFPAY ==
--- NOTE | 2020-08-13 15:19 | MM_ITS ---
EXAMINATION: DXA VERTEBRAL FRACTURE ASSESSMENT CLINICAL INFORMATION: Reason L5 compression fracture. Persistent severe low back pain. COMPARISON: Bone densitometry (lumbar spine, left., Left forearm) 08/11/2020. CT chest 07/21/2020, CT abdomen and pelvis 07/21/2020. TECHNIQUE: Your patient completed a vertebral fracture assessment using the [employer] DXA system (software version: 14.10) manufactured by [employer]. The following summarizes the results of our evaluation. LVA MORPHOMETRY RESULTS: Evaluation of the thoracolumbar spine from T5 through L4 was performed. Image quality is acceptable from T9 through L4. There is a mild dextrocurvature thoracic spine with decreases image quality above T9. There is a known compression fracture at L5. There are no vertebral compression T9 through L4. The recent CT chest, abdomen, and pelvis 07/21/2020 shows no vertebral compressions from T1 through L4. MM/XR DEXA vertrebral fracture IMPRESSION: 1. No visible vertebral compressions T9-L4 on this exam. Known compression at L5. 2. There is a recent CT chest, abdomen, and pelvis of 07/21/2020 showing no vertebral compressions at that time from T1-L4. RECOMMENDATIONS: All patients should ensure an adequate intake of dietary calcium (1200 mg/d) and vitamin D (400-800 IU/d). Effective therapies are now available in the form of bisphosphonates, (alendronate, ibandronate, risedronate, zoledronic acid), antiresorptive agents (calcitonin, estrogen+ progesterone and raloxifene) and anabolic agent (teriparatide). These therapies may reduce vertebral, hip and other fractures by up to 50%. FOLLOW-UP: People with diagnosed cases of osteoporosis, high risk for fracture, or current vertebral fractures should have regular bone mineral density tests. The frequency of follow-up vertebral fracture assessment tests should be determined based on clinical circumstances. Often times, testing frequency will be based on rapidly progressing disease, or the addition or elimination of therapy to treat the disease.
== END 2020-08-13 15:17 | disposition home or self-care (01) ==
LOC: HO.MAMMO 15:16
PROVIDERS: Visit Provider Physician Assistant
DX: M81.0 Age-related osteoporosis without current pathological fracture (principal)
CPT/HCPCS: 77086